=== PATIENT | male | born 1940 ===

== ENCOUNTER 2018-06-01 10:21 | Emergency (ER) | payer MEDICARE, OTHER ==
[2018-06-01 10:33] VITALS: BP 141/88
--- NOTE | 2018-06-01 10:34 | UC ---
Complaint Male HPI - HPI Summary HPI Summary: 78 yo male presents with urinary pressure, urgency, and hematuria that occurred 3 days ago. He tells me that he was driving back to [place] from [place] when, about residential, he felt the urge to urinate. He pulled over and got a motel for the evening where he tried to urinate, but only had a few "dribbles". This persisted the rest of the evening and he noticed some spotting of blood. He admits he was drinking a lot of soda on his travel, but that night after noticing the urinary symptoms - he switched to drinking a lot of water. He got up in the middle of the night and said he was able to urinate a lot without pain and without blood. Since that time he has been drinking more water and has had resolution of his symptoms. Currently denies fever, chills, abdominal pain, n/v. - History of Current Complaint Chief Complaint: UCGU Stated Complaint: URINARY COMPLAINT Time Seen by Provider: 06/01/18 10:34 Hx Obtained From: Patient Onset/Duration: Sudden Onset Severity Currently: None Pain Intensity: 0 - Allergies/Home Medications Allergies/Adverse Reactions: Allergies Allergy/AdvReac Type Severity Reaction Status Date / Time No Known Allergies Allergy Verified 06/01/18 10:34 Home Medications: Home Medications Aspirin 81 mg CHEW TAB* 1 tab PO DAILY 06/01/18 [History Confirmed 06/01/18] Atorvastatin* [Lipitor 40 MG*] 1 tab PO DAILY 06/01/18 [History Confirmed ] Metoprolol Tartrate 25 mg PO BID 06/01/18 [History Confirmed 06/01/18] PMH/Surg Hx/FS Hx/Imm Hx - Additional Past Medical History Additional PMH: Prostate CA Endocrine History: Dyslipidemia Cardiovascular History: Hypertension - Surgical History Surgical History: Yes Surgery Procedure, Year, and Place: prostate - Family History Known Family History: Positive: None - Social History Occupation: Retired Lives: With Family Alcohol Use: Occasionally Substance Use Type: None Smoking Status (MU): Never Smoked Tobacco Review of Systems Constitutional: Negative Skin: Negative Respiratory: Negative Cardiovascular: Negative Gastrointestinal: Negative Genitourinary: Dysuria, Hematuria, Urgency Neurovascular: Negative Neurological: Negative Psychological: Negative All Other Systems Reviewed And Are Negative: Yes Physical Exam - Summary Physical Exam Summary: GENERAL: NAD. WDWN. No pain distress. SKIN: No rashes, sores, lesions, or open wounds. NECK: Supple. Nontender. No lymphadenopathy. CHEST: CTAB. No r/r/w. No accessory muscle use. Breathing comfortably and in no distress. CV: RRR. Without m/r/g. Pulses intact. Cap refill <2seconds ABDOMEN: Soft. NTTP. No distention or guarding. No CVA tenderness. Bowel sounds present NEURO: Alert. CN II-XII grossly intact. PSYCH: Age appropriate behavior. Triage Information Reviewed: Yes Vital Signs: Initial Vital Signs Temp 98.3 F 06/01/18 10:29 Pulse 87 06/01/18 10:29 Resp 16 06/01/18 10:29 BP 141/88 06/01/18 10:29 Pulse Ox 100 06/01/18 10:29 UA: Glu negative HANG negative Ket negative SG 1.015 BLO negative pH 7.5 PRO negative URO 0.2 NIT negative FRANCOIS negative Vital Signs Reviewed: Yes Complaint Male Course/Dx - Course Course Of Treatment: UA without signs of infection. Pt has had resolution of his symptoms since they first appeared 3 days ago. It is possible that he was dehydrated or had a mild UTI that resolved with drinking water. Given his hx of prostate CA 14-15 years ago, advised to f/u if symptoms return or if he notices blood in his urine in the future. - Differential Dx/Diagnosis Provider Diagnoses: Dysuria Discharge - Sign-Out/Discharge Documenting (check all that apply): Patient Departure All imaging exams completed and their final reports reviewed: No Studies - Discharge Plan Condition: Stable Disposition: HOME Patient Education Materials: Dehydration (ED), Urinary Tract Infection in Men ( [place]) Referrals: [facility] [Outside] - As Soon As Possible Additional Instructions: If you develop a fever, shortness of breath, chest pain, new or worsening symptoms - please call your PCP or go to the ED. Your blood pressure was mildly elevated at todays visit. Please see your primary provider within 4 weeks for recheck and re-evaluation. - Billing Disposition and Condition Condition: STABLE Disposition: Home
== END 2018-06-01 11:06 | disposition home or self-care (01) ==
LOC: UCEAST 10:21
DX: R30.0 Dysuria (principal); R31.9 Hematuria, unspecified; R39.15 Urgency of urination; E78.5 Hyperlipidemia, unspecified; I10 Essential (primary) hypertension; Z85.46 Personal history of malignant neoplasm of prostate
CPT/HCPCS: 81003; 99201; G0463